=== PATIENT | female | born 1955 | race American Indian/Alaskan Native ===

== ENCOUNTER 2016-09-05 17:18 | Observation (INO) | payer MEDICARE ==
[2016-09-05] MEDS ORDERED: Aspirin 325 mg EC Tablets PO STA (17:51)
[2016-09-05] MEDS ORDERED: Enoxaparin 40 mg Syringe SC STA (17:54)
[2016-09-05] MEDS ORDERED: Enoxaparin 60 mg Syringe ONE (18:06)
[2016-09-05 18:18] LABS: BASO % 0.5 % (0.0-2.0); EOS # 0.2 K/uL (0.0-0.7); EOS % 2.1 % (0.0-4.0); HEMOGLOBIN 14.3 g/dL (11.0-16.0); LYMPH # 2.8 K/uL (1.0-4.3); MEAN CORPUSCULAR HEMOGLOBIN 29.1 pg (27.0-31.0); MEAN CORPUSCULAR HGB CONC 32.9 g/dL (33.0-37.0); MEAN PLATELET VOLUME 9.4 fL (7.2-11.7); MONO # 0.7 K/uL (0.0-0.8); MONO % 7.1 % (0.0-10.0); NEUT # 6.3 K/uL (1.8-7.0); NEUT % 62.3 % (50.0-75.0); RBC 4.9 Mil/uL (3.80-5.20); RED CELL DISTRIBUTION WIDTH 14.1 % (11.5-14.5); WHITE BLOOD COUNT 10.1 K/uL (4.8-10.8)
[2016-09-05 18:22] LABS: MEAN CELL VOLUME 88.6 fL (81.0-99.0)
[2016-09-05 18:23] LABS: URINE BACTERIA OCC (<OCC); URINE BILIRUBIN NEGATIVE (NEGATIVE); URINE BLOOD NEGATIVE (NEGATIVE); URINE CLARITY Clear (Clear); URINE COLOR Colorless (YELLOW); URINE GLUCOSE (UA) NORMAL (Normal); URINE LEUKOCYTE ESTERASE NEG Leu/uL (Negative); URINE NITRATE NEGATIVE (NEGATIVE); URINE PROTEIN NEGATIVE (NEGATIVE); URINE UROBILINOGEN NORMAL mg/dL (0.2-1.0)
[2016-09-05 18:24] LABS: ALBUMIN 4.1 g/dL (3.5-5.0)
[2016-09-05 18:27] LABS: AST/SGOT 19 U/L (14-36); GFR AFRICAN-AMERICAN > 60; GFR NON-AFRICAN AMERICAN > 60
[2016-09-05 18:28] LABS: ALB/GLOB RATIO 1.3 (1.0-2.1); ALT/SGPT 25 U/L (9-52); BLOOD UREA NITROGEN 15 mg/dL (7-17); CALCIUM 9.5 mg/dl (8.6-10.4)
[2016-09-05] MEDS ORDERED: Enoxaparin 60 mg Syringe SC STA (18:28)
[2016-09-05 18:34] LABS: BARBITURATES, UR NEGATIVE (NEGATIVE); BENZODIAZEPINES, UR NEGATIVE (NEGATIVE)
[2016-09-05 18:36] LABS: B-TYPE NATRIURETIC PEPTIDE 42.7 pg/mL (0-900)
[2016-09-05 18:37] LABS: OPIATES, UR NEGATIVE (NEGATIVE); PHENCYCLIDINE, UR NEGATIVE (NEGATIVE)
--- NOTE | 2016-09-05 19:29 | C.PDOC ---
History Of Present Illness 61 year old female was brought to the ED by EMS with complaints of uncontrolled HTN. Patient states she is in good compliance with her medications for blood pressure but is not sure what their names are. She notes she smokes half a pack of cigarettes a day and has had multiple evaluations for chest pain. She denies any headache and dizziness at this time. Time Seen by Provider: 09/05/16 17:46 Chief Complaint (Nursing): Chest Pain History Per: Patient History/Exam Limitations: no limitations Onset/Duration Of Symptoms: Hrs Current Symptoms Are (Timing): Still Present Associated Symptoms: denies: Nausea, Dyspnea, Diaphoresis, Syncope Recent travel outside of the [place] States: No Additional History Per: EMS Past Medical History Reviewed: Historical Data, Nursing Documentation, Vital Signs Vital Signs: Last Vital Signs Temp 97.9 F 09/05/16 17:21 Pulse 65 09/05/16 20:35 Resp 26 H 09/05/16 20:35 BP 179/86 H 09/05/16 20:35 Pulse Ox 99 09/05/16 21:02 - Medical History PMH: HTN, Hypercholesterolemia Family History: States: Unknown Family Hx - Social History Hx Tobacco Use: Yes Hx Alcohol Use: No Hx Substance Use: No - Immunization History Hx Tetanus Toxoid Vaccination: No Hx Influenza Vaccination: No Hx Pneumococcal Vaccination: No Review Of Systems Constitutional: Positive for: Other ("uncontrolled hypertension" ). Negative for: Fever, Chills Cardiovascular: Negative for: Palpitations Respiratory: Negative for: Cough, Shortness of Breath Gastrointestinal: Negative for: Nausea, Vomiting, Abdominal Pain, Diarrhea Physical Exam - Physical Exam Appears: Non-toxic, No Acute Distress Skin: Warm, Dry Head: Atraumatic Eye(s): bilateral: Normal Inspection, PERRL, EOMI, Abnormal Pupil Oral Mucosa: Moist Neck: Supple Chest: Symmetrical, No Deformity Cardiovascular: Rhythm Regular Respiratory: Normal Breath Sounds, No Rales, No Rhonchi, No Wheezing Gastrointestinal/Abdominal: Soft, No Tenderness, No Distention, No Guarding, No Rebound Extremity: Normal ROM, No Tenderness Neurological/Psych: Oriented x3, Normal Speech, Normal Cognition, Normal Cranial Nerves, Normal Motor, Normal Sensation ED Course And Treatment - Laboratory Results Result Diagrams: 09/05/16 18:11 09/05/16 18:11 ECG: Interpreted By Me ECG Rhythm: Sinus Rhythm, ST/T Changes (t^ inversions V1, v2, v3) ECG Interpretation: Normal, Abnormal Rate From EC O2 Sat by Pulse Oximetry: 99 (room air ) - Radiology CXR: Interpreted by Me CXR Interpretation: Yes: No Acute Disease Reevaluation Time: 19:30 Reassessment Condition: Improved - Physician Consult Information Outcome Of Conversation: 1720: d/w Dr Bhat- Hospitalist covering pt's for Dr. Patel- PMD. ok to Tele Obs. Medical Decision Making Medical Decision Making: consider angina, uncontrolled HTN, smoker Disposition Doctor Will See Patient In The: Hospital Counseled Patient/Family Regarding: Studies Performed, Diagnosis - Disposition Disposition: HOSPITALIZED Disposition Time: 19:31 Condition: GOOD - Clinical Impression Clinical Impression: Chest discomfort, Uncontrolled hypertension - Scribe Statement The provider has reviewed the documentation as recorded by the Susanibmiranda Canales All medical record entries made by the Susanibmiranda were at my direction and personally dictated by me. I have reviewed the chart and agree that the record accurately reflects my personal performance of the history, physical exam, medical decision making, and the department course for this patient. I have also personally directed, reviewed, and agree with the discharge instructions and disposition.
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
[2016-09-06 00:58] LABS: CK-MB 0.46 ng/mL (0.0-3.38)
[2016-09-06 07:46] LABS: BASO % 0.6 % (0.0-2.0); EOS # 0.2 K/uL (0.0-0.7); EOS % 2.9 % (0.0-4.0); HEMOGLOBIN 13.1 g/dL (11.0-16.0); LYMPH # 2.2 K/uL (1.0-4.3); LYMPH % 26.3 % (20.0-40.0); MEAN CELL VOLUME 88.2 fL (81.0-99.0); MEAN CORPUSCULAR HEMOGLOBIN 29.1 pg (27.0-31.0); MEAN PLATELET VOLUME 9.1 fL (7.2-11.7); MONO # 0.7 K/uL (0.0-0.8); NEUT % 61.2 % (50.0-75.0); NRBC % 0.1 % (0.0-2.0); RBC 4.51 Mil/uL (3.80-5.20); WHITE BLOOD COUNT 8.2 K/uL (4.8-10.8)
[2016-09-06 08:37] LABS: ALBUMIN 3.5 g/dL (3.5-5.0)
[2016-09-06 08:40] LABS: ALB/GLOB RATIO 1.4 (1.0-2.1); ALT/SGPT 20 U/L (9-52); AST/SGOT 13 U/L (14-36); BLOOD UREA NITROGEN 16 mg/dL (7-17); GFR AFRICAN-AMERICAN > 60; GFR NON-AFRICAN AMERICAN > 60
[2016-09-06 08:41] LABS: CALCIUM 8.6 mg/dl (8.6-10.4); HDL CHOLESTEROL 29 mg/dL (30-70); MAGNESIUM 1.9 mg/dL (1.6-2.3)
--- NOTE | 2016-09-06 08:44 | RAD ---
PROCEDURE: CHEST RADIOGRAPH, 1 VIEW HISTORY: SOB COMPARISON: Comparison is made to 08/28/2015 FINDINGS: LUNGS: No evidence of new infiltrate or consolidation in the lungs PLEURA: No pneumothorax or pleural fluid seen. CARDIOVASCULAR: Normal. OSSEOUS STRUCTURES: No significant abnormalities. VISUALIZED UPPER ABDOMEN: Normal. OTHER FINDINGS: None. IMPRESSION: No active disease.
[2016-09-06 08:45] LABS: CK-MB 0.47 ng/mL (0.0-3.38)
[2016-09-06 08:52] LABS: LDL CHOLESTEROL 109 mg/dL (0-129)
[2016-09-06 11:56] VITALS: BP 128/81; PULSE 55; RESP 18; TEMP 97.8; O2SAT 96; BMI 22.2
--- NOTE | 2016-09-06 12:06 | RAD ---
HISTORY: chest pain COMPARISON: Comparison is made to 09/05/2016 TECHNIQUE: Chest PA and lateral FINDINGS: LUNGS: No active pulmonary disease. PLEURA: No significant pleural effusion identified. No pneumothorax apparent. CARDIOVASCULAR: Normal. OSSEOUS STRUCTURES: No significant abnormalities. VISUALIZED UPPER ABDOMEN: Normal. OTHER FINDINGS: None. IMPRESSION: No active disease.
--- NOTE | 2016-09-06 13:00 | CP.PCM.DIS ---
<Luna Ramos - Last Filed: 09/06/16 18:26> Provider - Provider Date of Admission: 09/05/16 19:26 Attending physician: Maycol Bhat MD Time Spent in preparation of Discharge (in minutes): 36 Diagnosis - Discharge Diagnosis (1) Chest pain Status: Acute (2) Neck muscle spasm Status: Acute (3) Uncontrolled hypertension Status: Chronic (4) Hypercholesteremia Status: Chronic (5) Tobacco abuse Status: Chronic (6) History of lump of right breast Status: Chronic Hospital Course - Lab Results Lab Results: Most Recent Lab Values WBC 8.2 K/uL (4.8-10.8) 09/06/16 07:26 RBC 4.51 Mil/uL (3.80-5.20) 09/06/16 07:26 Hgb 13.1 g/dL (11.0-16.0) 09/06/16 07:26 Hct 39.8 % (34.0-47.0) 09/06/16 07: MCV 88.2 fL (81.0-99.0) 09/06/16 07:26 MCH 29.1 pg (27.0-31.0) 09/06/16 07:26 MCHC 33.0 g/dL (33.0-37.0) 09/06/16 07:26 RDW 14.0 % (11.5-14.5) 09/06/16 07:26 Plt Count 183 K/uL (130-400) 09/06/16 07:26 MPV 9.1 fL (7.2-11.7) 09/06/16 07:26 Neut % (Auto) 61.2 % (50.0-75.0) 09/06/16 07:26 Lymph % (Auto) 26.3 % (20.0-40.0) 09/06/16 07:26 [place] % (Auto) 9.0 % (0.0-10.0) 09/06/16 07:26 Eos % (Auto) 2.9 % (0.0-4.0) 09/06/16 07:26 Baso % (Auto) 0.6 % (0.0-2.0) 09/06/16 07:26 Neut # 5.0 K/uL (1.8-7.0) 09/06/16 07:26 Lymph # 2.2 K/uL (1.0-4.3) 09/06/16 07:26 [place] # 0.7 K/uL (0.0-0.8) 09/06/16 07:26 Eos # 0.2 K/uL (0.0-0.7) 09/06/16 07:26 Baso # 0.0 K/uL (0.0-0.2) 09/06/16 07:26 Sodium 142 mmol/L (132-148) 09/06/16 07:26 Potassium 3.7 mmol/L (3.6-5.2) 09/06/16 07:26 Chloride 107 mmol/L (98-107) 09/06/16 07:26 Carbon Dioxide 21 mmol/L (22-30) L 09/06/16 07:26 Anion Gap 18 (10-20) 09/06/16 07:26 BUN 16 mg/dL (7-17) 09/06/16 07:26 Creatinine 0.6 MG/DL (0.7-1.2) L 09/06/16 07:26 Est GFR ( Amer) > 60 09/06/16 07:26 Est GFR (Non-Af Amer) > 60 09/06/16 07:26 POC Glucose (mg/dL) 82 mg/dL (65-110) 09/06/16 06:15 Random Glucose 93 mg/dL (65-105) 09/06/16 07:26 Calcium 8.6 mg/dl (8.6-10.4) 09/06/16 07:26 Phosphorus 4.6 mg/dL (2.5-4.5) H 09/06/16 07:26 Magnesium 1.9 mg/dL (1.6-2.3) 09/06/16 07:26 Total Bilirubin 0.4 mg/dL (0.2-1.3) 09/06/16 07:26 AST 13 U/L (14-36) L D 09/06/16 07:26 ALT 20 U/L (9-52) 09/06/16 07:26 Alkaline Phosphatase 48 U/L (38-126) 09/06/16 07:26 Total Creatine Kinase 65 U/L (30-135) 09/06/16 07:26 CK-MB (Mass) 0.47 ng/mL (0.0-3.38) 09/06/16 07:26 Troponin I < 0.0120 ng/mL (0.00-0.120) 09/05/16 18:11 Troponin I, Quant < 0.0120 ng/mL (0.00-0.120) 09/06/16 07:26 NT-Pro-B Natriuret Pep 42.7 pg/mL (0-900) 09/05/16 18:11 Total Protein 6.1 g/dL (6.3-8.3) L 09/06/16 07:26 Albumin 3.5 g/dL (3.5-5.0) 09/06/16 07:26 Globulin 2.6 gm/dL (2.2-3.9) 09/06/16 07: Albumin/Globulin Ratio 1.4 (1.0-2.1) 09/06/16 07:26 Triglycerides 143 mg/dL (0-149) D 09/06/16 07:26 Cholesterol 163 mg/dL (0-199) 09/06/16 07:26 LDL Cholesterol Direct 109 mg/dL (0-129) 09/06/16 07:26 HDL Cholesterol 29 mg/dL (30-70) L 09/06/16 07:26 Urine Color Colorless (YELLOW) 09/05/16 18:15 Urine Clarity Clear (Clear) 09/05/16 18:15 Urine pH 6.0 (5.0-8.0) 09/05/16 18:15 Ur Specific [place] 1.005 (1.003-1.030) 09/05/16 18:15 Urine Protein Negative mg/dL (NEGATIVE) 09/05/16 18:15 Urine Glucose (UA) Normal mg/dL (Normal) 09/05/16 18:15 Urine Ketones Negative mg/dL (NEGATIVE) 09/05/16 18:15 Urine Blood Negative (NEGATIVE) 09/05/16 18:15 Urine Nitrate Negative (NEGATIVE) 09/05/16 18:15 Urine Bilirubin Negative (NEGATIVE) 09/05/16 18:15 Urine Urobilinogen Normal mg/dL (0.2-1.0) 09/05/16 18:15 Ur Leukocyte Esterase Neg [place]/uL (Negative) 09/05/16 18:15 Urine WBC (Auto) < 1 /hpf (0-5) 09/05/16 18:15 Urine RBC (Auto) < 1 /hpf (0-3) 09/05/16 18:15 Urine Bacteria Occ (<OCC) H 09/05/16 18:15 Urine Opiates Screen Negative (NEGATIVE) 09/05/16 18:15 Urine Methadone Screen Negative (NEGATIVE) 09/05/16 18:15 Ur Barbiturates Screen Negative (NEGATIVE) 09/05/16 18:15 Ur Phencyclidine Scrn Negative (NEGATIVE) 09/05/16 18:15 Ur Amphetamines Screen Negative (NEGATIVE) 09/05/16 18:15 U Benzodiazepines Scrn Negative (NEGATIVE) 09/05/16 18:15 U Oth Cocaine Metabols Negative (NEGATIVE) 09/05/16 18:15 U Cannabinoids Screen Negative (NEGATIVE) 09/05/16 18:15 Alcohol, Quantitative < 10 mg/dl (0-10) 09/05/16 18:11 - Hospital Course Hospital Course: On admission: Patient is a 61 year old female with past medical history of hypertension, hypercholesterolemia, hemorrhoids, who presents to the ED with complaints of non -reproducible chest pain that began around 12:30 pm today. Patient describes her chest pain as a 8/10 pressure. Patient states that her pain is exacerbates by remaining in the same position and alleviated when in a supine or sitting position. Patient reports that she thought it was gas pain, thus she took gas-x , which provided no relief. Furthermore, patient reports that her chest pain usually occurs when she experiences cramps/spasms in her left leg. Patient admits to mild headache, weakness, left finger tingling, sob and neck pain but denies diaphoresis, nausea, vomiting and palpitations. Hospital Course: Patient had routine testing. ROMIs were negative times three. Lipid panel relatively within normal limits with exception of HDL which was low. Patient had recent cardiac workup of : Echo: EF= 65-70%, Left ventricle systolic function is normal . She also had a Normal exercise nuclear stress test, normal myocardial perfusion exercise stress test. EKG NSR. Patient denied cardiac symptoms on examination the following day after admission. When counseled on smoking cessation, patient expressed that she was not interested in quitting at this point and time. Patient given soft brace collar for neck stability. Patient to follow up with primary medical doctor and decrease strenuous activities. Patient was also encouraged to increase water intake to reduce frequency of muscle cramps in her legs. Patient to remove home meds. Patient was anxious to go home. This is a brief summary of events. For a complete course, refer to the medical record. Discharge Exam - Head Exam Head Exam: ATRAUMATIC, NORMAL INSPECTION, NORMOCEPHALIC - Eye Exam Eye Exam: EOMI, Normal appearance, PERRL Pupil Exam: NORMAL ACCOMODATION - ENT Exam ENT Exam: Mucous Membranes Moist - Neck Exam Neck exam: Full Rom - Respiratory Exam Respiratory Exam: UNREMARKABLE. absent: Wheezes - Cardiovascular Exam Cardiovascular Exam: REGULAR RHYTHM, +S1, +S2 - GI/Abdominal Exam GI & Abdominal Exam: Normal Bowel Sounds, Soft. absent: Distended, Firm - Extremities Exam Extremities exam: full ROM - Back Exam Back exam: FULL ROM - Neurological Exam Neurological exam: Alert, Normal Gait, Oriented x3 - Psychiatric Exam Psychiatric exam: Anxious, Normal Affect, Normal Mood - Skin Skin Exam: Dry, Intact, Normal Color, Warm Discharge Plan - Discharge Medications Prescriptions: amLODIPine [Norvasc] 10 mg PO DAILY #30 tab Atorvastatin 40 mg PO DAILY #30 Lisinopril [Zestril] 20 mg PO BID #30 tab Naproxen 250 mg PO BID #14 tab - Follow Up Plan Condition: IMPROVED Disposition: HOME/ ROUTINE Instructions: Lisinopril (By mouth), Naproxen (By mouth), Amlodipine (By mouth) , Atorvastatin (By mouth), Chest Pain (DC), Heart Healthy Diet (DC), Spasmodic Torticollis (DC), Hypertension (DC) Additional Instructions: PLEASE FOLLOW UP WITH YOUR PMD. PLEASE CONTINUE ALL YOUR PREVIOUS MEDICATIONS. PLEASE TRY TO QUIT SMOKING <Georges Blackburn - Last Filed: 09/07/16 07:06> Provider - Provider Date of Admission: 09/05/16 19:26 Attending physician: Maycol Bhat MD Hospital Course - Lab Results Lab Results: Most Recent Lab Values WBC 8.2 K/uL (4.8-10.8) 09/06/16 07:26 RBC 4.51 Mil/uL (3.80-5.20) 09/06/16 07:26 Hgb 13.1 g/dL (11.0-16.0) 09/06/16 07: Hct 39.8 % (34.0-47.0) 09/06/16 07: MCV 88.2 fL (81.0-99.0) 09/06/16 07:26 MCH 29.1 pg (27.0-31.0) 09/06/16 07: MCHC 33.0 g/dL (33.0-37.0) 09/06/16 07: RDW 14.0 % (11.5-14.5) 09/06/16 07:26 Plt Count 183 K/uL (130-400) 09/06/16 07: MPV 9.1 fL (7.2-11.7) 09/06/16 07: Neut % (Auto) 61.2 % (50.0-75.0) 09/06/16 07: Lymph % (Auto) 26.3 % (20.0-40.0) 09/06/16 07: [place] % (Auto) 9.0 % (0.0-10.0) 09/06/16 07:26 Eos % (Auto) 2.9 % (0.0-4.0) 09/06/16 07: Baso % (Auto) 0.6 % (0.0-2.0) 09/06/16 07: Neut # 5.0 K/uL (1.8-7.0) 09/06/16 07:26 Lymph # 2.2 K/uL (1.0-4.3) 09/06/16 07:26 [place] # 0.7 K/uL (0.0-0.8) 09/06/16 07:26 Eos # 0.2 K/uL (0.0-0.7) 09/06/16 07:26 Baso # 0.0 K/uL (0.0-0.2) 09/06/16 07:26 Sodium 142 mmol/L (132-148) 09/06/16 07:26 Potassium 3.7 mmol/L (3.6-5.2) 09/06/16 07:26 Chloride 107 mmol/L (98-107) 09/06/16 07:26 Carbon Dioxide 21 mmol/L (22-30) L 09/06/16 07:26 Anion Gap 18 (10-20) 09/06/16 07:26 BUN 16 mg/dL (7-17) 09/06/16 07:26 Creatinine 0.6 MG/DL (0.7-1.2) L 09/06/16 07:26 Est GFR ( Amer) > 60 09/06/16 07:26 Est GFR (Non-Af Amer) > 60 09/06/16 07:26 POC Glucose (mg/dL) 82 mg/dL (65-110) 09/06/16 06:15 Random Glucose 93 mg/dL (65-105) 09/06/16 07:26 Calcium 8.6 mg/dl (8.6-10.4) 09/06/16 07:26 Phosphorus 4.6 mg/dL (2.5-4.5) H 09/06/16 07:26 Magnesium 1.9 mg/dL (1.6-2.3) 09/06/16 07:26 Total Bilirubin 0.4 mg/dL (0.2-1.3) 09/06/16 07:26 AST 13 U/L (14-36) L D 09/06/16 07:26 ALT 20 U/L (9-52) 09/06/16 07:26 Alkaline Phosphatase 48 U/L (38-126) 09/06/16 07:26 Total Creatine Kinase 65 U/L (30-135) 09/06/16 07:26 CK-MB (Mass) 0.47 ng/mL (0.0-3.38) 09/06/16 07:26 Troponin I < 0.0120 ng/mL (0.00-0.120) 09/05/16 18:11 Troponin I, Quant < 0.0120 ng/mL (0.00-0.120) 09/06/16 07:26 NT-Pro-B Natriuret Pep 42.7 pg/mL (0-900) 09/05/16 18:11 Total Protein 6.1 g/dL (6.3-8.3) L 09/06/16 07:26 Albumin 3.5 g/dL (3.5-5.0) 09/06/16 07:26 Globulin 2.6 gm/dL (2.2-3.9) 09/06/16 07:26 Albumin/Globulin Ratio 1.4 (1.0-2.1) 09/06/16 07:26 Triglycerides 143 mg/dL (0-149) D 09/06/16 07:26 Cholesterol 163 mg/dL (0-199) 09/06/16 07:26 LDL Cholesterol Direct 109 mg/dL (0-129) 09/06/16 07:26 HDL Cholesterol 29 mg/dL (30-70) L 09/06/16 07:26 Urine Color Colorless (YELLOW) 09/05/16 18:15 Urine Clarity Clear (Clear) 09/05/16 18:15 Urine pH 6.0 (5.0-8.0) 09/05/16 18:15 Ur Specific [place] 1.005 (1.003-1.030) 09/05/16 18:15 Urine Protein Negative mg/dL (NEGATIVE) 09/05/16 18:15 Urine Glucose (UA) Normal mg/dL (Normal) 09/05/16 18:15 Urine Ketones Negative mg/dL (NEGATIVE) 09/05/16 18:15 Urine Blood Negative (NEGATIVE) 09/05/16 18:15 Urine Nitrate Negative (NEGATIVE) 09/05/16 18:15 Urine Bilirubin Negative (NEGATIVE) 09/05/16 18:15 Urine Urobilinogen Normal mg/dL (0.2-1.0) 09/05/16 18:15 Ur Leukocyte Esterase Neg [place]/uL (Negative) 09/05/16 18:15 Urine WBC (Auto) < 1 /hpf (0-5) 09/05/16 18:15 Urine RBC (Auto) < 1 /hpf (0-3) 09/05/16 18:15 Urine Bacteria Occ (<OCC) H 09/05/16 18:15 Urine Opiates Screen Negative (NEGATIVE) 09/05/16 18:15 Urine Methadone Screen Negative (NEGATIVE) 09/05/16 18:15 Ur Barbiturates Screen Negative (NEGATIVE) 09/05/16 18:15 Ur Phencyclidine Scrn Negative (NEGATIVE) 09/05/16 18:15 Ur Amphetamines Screen Negative (NEGATIVE) 09/05/16 18:15 U Benzodiazepines Scrn Negative (NEGATIVE) 09/05/16 18:15 U Oth Cocaine Metabols Negative (NEGATIVE) 09/05/16 18:15 U Cannabinoids Screen Negative (NEGATIVE) 09/05/16 18:15 Alcohol, Quantitative < 10 mg/dl (0-10) 09/05/16 18:11 Attending/Attestation - Attestation I have personally seen and examined this patient.: Yes I have fully participated in the care of the patient.: Yes I have reviewed all pertinent clinical information, including history, physical exam and plan: Yes Notes (Text): Medical Attending: Patient was seen and examined by me. Agree with the above note by the resident. The patient will be continuing her home medication, we gave her refill on medications. The patient reports she is still an active smoker. I explain to her that given her HTN and Hyperlipidemia already that smoking places her at a higher risk. She explained to me that she is aware however is still not ready to go off of smoking. thank you Georges Blackburn
--- NOTE | 2016-09-08 13:02 | CARD ---
APPROVED REPORT EKG Measurement Heart [id number] <Conclusion> Normal sinus rhythm T wave abnormality, consider anterior ischemia Abnormal ECG
== END 2016-09-06 12:35 | disposition home or self-care (01) ==
LOC: C.ER 17:18 → C.9E 19:26 → C.6T 20:43
PROVIDERS: ADMIT Internal Medicine; ATTEND Internal Medicine
DX: R07.89 Other chest pain (principal); M62.838 Other muscle spasm; M54.2 Cervicalgia; I10 Essential (primary) hypertension; F17.210 Nicotine dependence, cigarettes, uncomplicated; E78.00 Pure hypercholesterolemia, unspecified; R51 Headache; R20.2 Paresthesia of skin; R06.02 Shortness of breath; N63 Unspecified lump in breast; Z71.6 Tobacco abuse counseling
CPT/HCPCS: 36415; 71010; 71020; 80053; 80061; 81001; 82948; 83036; 83735; 83880; 84100; 84484; 85025; 96372; 99285; G0378; G0480; J1650

== ENCOUNTER 2018-04-17 15:47 | Emergency (ER) | payer MEDICARE, OTHER ==
[2018-04-17 15:47] VITALS: BMI 22.2
[2018-04-17 15:59] VITALS: BP 137/81; PULSE 71; RESP 18; TEMP 98.2; O2SAT 100
[2018-04-17] MEDS ORDERED: Albuterol-Ipratrop 3 mg / 0.5 (3 ml) UD INH STA (17:28)
--- NOTE | 2018-04-17 17:32 | C.PDOC ---
History Of Present Illness 62 y/o female with a PMHx of HTN, hypercholesterolemia, and recent diagnosis of bronchitis, presents to the ED complaining of a productive cough since Thursday. Associated with chest congestion, sinus pressure, ocular pain and shaking to bilateral hands. Patient states she saw her PMD Amanda 5 days ago, and was sent home with a Z-pack, prometherin, cough syrup, and albuterol pump. Patient completed course of antibiotics but reports no improvement. She denies any fever, chills, dizziness, SOB, chest pain, nausea, vomiting, abdominal pain. Also denies hx of seasonal allergies or known sick contacts. Time Seen by Provider: 04/17/18 16:45 Chief Complaint (Nursing): Headache History Per: Patient History/Exam Limitations: no limitations Onset/Duration Of Symptoms: Days (6) Current Symptoms Are (Timing): Still Present Past Medical History Reviewed: Historical Data, Nursing Documentation, Vital Signs Vital Signs: Last Vital Signs Temp 98.2 F 04/17/18 15:57 Pulse 71 04/17/18 15:57 Resp 18 04/17/18 15:57 BP 137/81 04/17/18 15:57 Pulse Ox 100 04/17/18 15:57 - Medical History PMH: HTN, Hypercholesterolemia Family History: States: Unknown Family Hx - Social History Hx Tobacco Use: Yes Hx Alcohol Use: Yes (socially) Hx Substance Use: No - Immunization History Hx Tetanus Toxoid Vaccination: No Hx Influenza Vaccination: No Hx Pneumococcal Vaccination: No Review Of Systems Constitutional: Negative for: Fever, Chills Eyes: Positive for: Other (Ocular pain) ENT: Positive for: Nose Discharge, Nose Congestion Cardiovascular: Negative for: Chest Pain Respiratory: Positive for: Cough, Sputum. Negative for: Shortness of Breath Gastrointestinal: Negative for: Nausea, Vomiting Musculoskeletal: Positive for: Other (shaking to bilateral hands) Skin: Negative for: Rash Neurological: Positive for: Headache (described as sinus pressure). Negative for: Weakness, Numbness, Dizziness Physical Exam - Physical Exam Appears: Non-toxic, No Acute Distress Skin: Warm, Dry, No Rash Head: Atraumatic, Normacephalic Eye(s): bilateral: PERRL, EOMI, Other (conjunctiva injected bilaterally) Nose: No Discharge, Other (Moderate turbinate hypertrophy bilaterally) Oral Mucosa: Moist Throat: Normal (airway patent), No Erythema, No Exudate Neck: Normal ROM, Supple Chest: Symmetrical Cardiovascular: Rhythm Regular, No Murmur Respiratory: No Rales, No Rhonchi, Wheezing (diffusely) Gastrointestinal/Abdominal: Soft, No Tenderness, No Distention Extremity: Normal ROM, No Tenderness, No Swelling, Other (No tremors noted) Pulses: Left Radial: Normal, Right Radial: Normal Neurological/Psych: Oriented x3, Normal Cranial Nerves, Normal Motor, Normal Sensation ED Course And Treatment - Laboratory Results Result Diagrams: 04/17/18 17:35 04/17/18 17:35 ECG: Interpreted By Me, Viewed By Me ECG Rhythm: Sinus Bradycardia ECG Interpretation: No Acute Changes Rate From EC O2 Sat by Pulse Oximetry: 100 (RA) Pulse Ox Interpretation: Normal - Other Rad CXR X-Ray: Read By Radiologist Interpretation: Accession No. : [id number]. Patient Name / ID : MAURA SANTOS / [id number]. Exam Date : 04/17/2018 16:56:22 ( Approved ). Study Comment : Sex / Age : F / 62Y. Creator : Georges Lee MD. Dictator : Georges Lee MD. Dining Car Hop : Evs Tech : Georges Lee MD. Approver2 : Report Date : 04/17/2018 18:34:55. My Comment : . Date of service: 04/17/2018. HISTORY: SOB. COMPARISON: 09/06/2016. TECHNIQUE: Chest PA and lateral. FINDINGS: LUNGS: No active pulmonary disease. PLEURA: No pleural effusion. There is a left diaphragmatic hernia. Correlating with CT of 08/30/2015, this is a small diaphragmatic hernia with small amount of herniated fat, likely developmental. This is unchanged in appearance compared to the prior chest radiograph. CARDIOVASCULAR: No aortic atherosclerotic calcification present. Normal cardiac size. No pulmonary vascular congestion. OSSEOUS STRUCTURES: No significant abnormalities. VISUALIZED UPPER ABDOMEN: Normal. OTHER FINDINGS: None. IMPRESSION: No active disease. Medical Decision Making Medical Decision Making: Impression: Cough, Bronchitis Plan: - EKG - Labs - Chest x-ray - Duoneb x 1 - 60 mg PO Sudafed - Repeat peak flow and reassess Discussed with patient that shaking oh hands may be due to Albuterol use. She denies use in the past and was advised to hold. Labs reviewed. CXR negative for any infiltrates or effusion. Left diaphragmatic hernia noted. Upon reassessment, patient is stable. no longer wheezing. stable for discharge. Patient to follow up with Dr. Patel in 1-2 days. Return to ED if symptoms worsen Patient verbalized understanding and is in agreement with plan Disposition Counseled Patient/Family Regarding: Studies Performed, Diagnosis, Need For Followup, Rx Given, Smoking Cessation - Disposition Referrals: Rod Patel, MICHELA, EXTRACTOR OPERATOR [Advanced Practice Nurse] - Disposition: HOME/ ROUTINE Disposition Time: 18:55 Condition: STABLE Additional Instructions: DANIELLE LORENZO, thank you for letting us take care of you today. Your provider was Amita Michael MD/Man Holguin PA-C and you were treated for BODY PAIN. The emergency medical care you received today was directed at your acute symptoms. If you were prescribed any medication, please fill it and take as directed. It may take several days for your symptoms to resolve. Return to the Emergency Department if your symptoms worsen, do not improve, or if you have any other problems. Please contact your doctor or call one of the physicians/clinics you have been referred to that are listed on the Patient Visit Information form that is included in your discharge packet. Bring any paperwork you were given at discharge with you along with any medications you are taking to your follow up visit. Our treatment cannot replace ongoing medical care by a primary care provider outside of the emergency department. Thank you for allowing the [facility] team to be part of your care today. Prescriptions: Benzonatate [Tessalon Perles] 100 mg PO TID PRN #30 sgl PRN Reason: Cough Methylprednisolone [Medrol Dose Pack (21 tabs)] 4 mg PO DAILY #21 mg Instructions: Acute Bronchitis, Adult (DC) Forms: [facility] (Uzbek) - Clinical Impression Clinical Impression: Cough, Bronchitis - PA / MANAGER BEHAVIORAL / Resident Statement MD/DO has reviewed & agrees with the documentation as recorded. - Scribe Statement The provider has reviewed the documentation as recorded by the Scribe Yulisa Goode All medical record entries made by the Susanibe were at my direction and personally dictated by me. I have reviewed the chart and agree that the record accurately reflects my personal performance of the history, physical exam, medical decision making, and the department course for this patient. I have also personally directed, reviewed, and agree with the discharge instructions and disposition.
[2018-04-17 17:35] LABS: SQUAMOUS EPITHIAL 2 /hpf (0-5); URINE BACTERIA RARE (<OCC); URINE BILIRUBIN NEGATIVE (NEGATIVE); URINE BLOOD NEGATIVE (NEGATIVE); URINE CLARITY Hazy (Clear); URINE COLOR Yellow (YELLOW); URINE GLUCOSE (UA) NORMAL (Normal); URINE LEUKOCYTE ESTERASE NEG Leu/uL (Negative); URINE PROTEIN NEGATIVE (NEGATIVE); URINE UROBILINOGEN NORMAL mg/dL (0.2-1.0)
[2018-04-17 17:40] LABS: BASO % 0.8 % (0.0-2.0); EOS # 0.1 K/uL (0.0-0.7); HEMOGLOBIN 14.2 g/dL (11.0-16.0); LYMPH # 1.3 K/uL (1.0-4.3); LYMPH % 26.8 % (20.0-40.0); MEAN CELL VOLUME 88.5 fL (81.0-99.0); MEAN CORPUSCULAR HEMOGLOBIN 28.9 pg (27.0-31.0); MEAN CORPUSCULAR HGB CONC 32.7 g/dL (33.0-37.0); MEAN PLATELET VOLUME 8.4 fL (7.2-11.7); MONO # 0.4 K/uL (0.0-0.8); MONO % 7.9 % (0.0-10.0); NEUT # 2.9 K/uL (1.8-7.0); NEUT % 62.5 % (50.0-75.0); RBC 4.92 Mil/uL (3.80-5.20); RED CELL DISTRIBUTION WIDTH 14.4 % (11.5-14.5); WHITE BLOOD COUNT 4.7 K/uL (4.8-10.8)
[2018-04-17 17:52] LABS: ALB/GLOB RATIO 1.5 (1.0-2.1); ALBUMIN 4.2 g/dL (3.5-5.0); ALT/SGPT 11 U/L (9-52); AST/SGOT 20 U/L (14-36); BLOOD UREA NITROGEN 14 mg/dL (7-17); CALCIUM 8.9 mg/dl (8.6-10.4); GFR NON-AFRICAN AMERICAN > 60
[2018-04-17 18:04] LABS: CK-MB < 0.22 ng/mL (0.0-3.38)
--- NOTE | 2018-04-17 18:38 | RAD ---
Date of service: 04/17/2018 HISTORY: SOB COMPARISON: 09/06/2016 TECHNIQUE: Chest PA and lateral FINDINGS: LUNGS: No active pulmonary disease. PLEURA: No pleural effusion. There is a left diaphragmatic hernia. Correlating with CT of 08/30/2015, this is a small diaphragmatic hernia with small amount of herniated fat, likely developmental. This is unchanged in appearance compared to the prior chest radiograph. CARDIOVASCULAR: No aortic atherosclerotic calcification present. Normal cardiac size. No pulmonary vascular congestion. OSSEOUS STRUCTURES: No significant abnormalities. VISUALIZED UPPER ABDOMEN: Normal. OTHER FINDINGS: None. IMPRESSION: No active disease.
--- NOTE | 2018-04-21 12:28 | CARD ---
APPROVED REPORT Date of service: 04/17/2018 EKG Measurement Heart [id number] <Conclusion> Sinus bradycardia Otherwise normal ECG
== END 2018-04-17 19:08 | disposition home or self-care (01) ==
LOC: C.ER 15:47
DX: J40 Bronchitis, not specified as acute or chronic (principal); I10 Essential (primary) hypertension; E78.00 Pure hypercholesterolemia, unspecified; F17.210 Nicotine dependence, cigarettes, uncomplicated